=== PATIENT | female | born 1955 | race Caucasian/White ===

== ENCOUNTER 2018-02-10 15:20 | Day surgery (SDC) | payer BC, OTHER ==
[2018-02-10] MEDS ORDERED: cefTRIAXone(*) 2 GM ADDV.VIAL IVPB ONE (16:01)
[2018-02-10] MEDS ORDERED: Buffered Lidocaine 0.9% SYRIN* 5 ML/SYR SYRINGE INTRADERM ONE (16:15)
[2018-02-10] MEDS ORDERED: Ondansetron INJ* 2 MG/ML VIAL ONE (16:15)
[2018-02-10] MEDS ORDERED: Famotidine IV* 10 MG/ML 2 ML (20 mg) IV ONE (16:15)
[2018-02-10] MEDS ORDERED: Dexamethasone TAB* 4 MG PO ONE (16:15)
[2018-02-10] MEDS ORDERED: Famotidine IV* 10 MG/ML 2 ML (20 mg) ONE (16:16)
[2018-02-10] MEDS ORDERED: oxyCODONE/Acetamin 5/325 MG* TAB PO PRN (16:17)
[2018-02-10] MEDS ORDERED: PROCHLORPERAZINE INJ 5 MG/ML 2 ML VIAL IV PRN (16:17)
[2018-02-10] MEDS ORDERED: Naloxone* 0.4 MG/ML 1 ML VIAL IV PRN (16:17)
[2018-02-10] MEDS ORDERED: Morphine INJ* 2 MG/ML 1 ML SYRINGE (TWO MG - NEW SYRINGE VERSION) IV PRN (16:17)
[2018-02-10] MEDS ORDERED: Ondansetron ODT TAB* 4 MG ONE (16:17)
[2018-02-10] MEDS ORDERED: Scopolamine 1.5 mg* PATCH TRANSDERM PRN (16:17)
[2018-02-10] MEDS ORDERED: Dexamethasone TAB* 4 MG ONE (16:17)
[2018-02-10] MEDS ORDERED: DiMENhydriNATE IV* 50 MG/ML VIAL IV PUSH PRN (16:17)
[2018-02-10] MEDS ORDERED: fentaNYL* 50 MCG/ML 2 ML VIAL (100 MCG VIAL) IV PRN (16:17)
[2018-02-10] MEDS ORDERED: Iohexol 180 (CONTRAST) 10 ML SDV IV ONE (16:27)
[2018-02-10] MEDS ORDERED: KETAMINE HCL* 50 MG/ML 10 ML VIAL ONE (16:28)
[2018-02-10] MEDS ORDERED: fentaNYL* 50 MCG/ML 2 ML VIAL (100 MCG VIAL) ONE (16:28)
[2018-02-10] MEDS ORDERED: Midazolam* 1 MG/ML 5 ML VIAL (5 MG) ONE (16:28)
[2018-02-10] MEDS ORDERED: Lidocaine 2% PF * 5 ML VIAL ONE (17:57)
[2018-02-10] MEDS ORDERED: Propofol* 10 MG/ML 20 ML BTL IV PUSH ONE (17:57)
[2018-02-10 19:00] VITALS: BP 128/69
--- NOTE | 2018-02-11 07:04 | RAD ---
INDICATION: Left renal calculi, left ureteral stent placement. COMPARISON: Comparison is made with prior KUB series from February 08, 2018. TECHNIQUE: 5 seconds of intermittent fluoroscopic guidance were provided and 5 spot films of the abdomen were centered on the left side. FINDINGS: There is partial opacification of the left renal collecting system. Subsequently there is placement of a double-J stent catheter on the left side which demonstrates normal course. IMPRESSION: INTRAOPERATIVE CONTROL FILMS. CPT II Codes: G9500
--- NOTE | 2018-02-11 18:12 | OP ---
CC: Ferdinand Johnson MD * DATE OF OPERATION: 02/10/18 - [facility] DATE OF : 59. SURGEON: Roshan Walters MD. ANESTHESIOLOGIST: Dr. Coronel. ANESTHESIA: General. PRE-OP DIAGNOSES: 1. Calculus, left ureter. 2. Mild left hydronephrosis. POST-OP DIAGNOSES: 1. Calculus, left ureter. 2. Mild left hydronephrosis. OPERATIVE PROCEDURE: Cystoscopy, left retrograde pyelogram, left ureteroscopy, laser lithotripsy and left stent insertion. COMPLICATIONS: None. STENT USED: A 6-Mauritanian stent, left ureter. OPERATIVE FINDINGS: 1. About 6 to 7 mm calculus impacted in left distal ureter with surrounding edema and inflammation. 2. Mild stricture left distal ureter, just below the level of the calculus. 3. Mild left hydronephrosis. INDICATION: Mariposa Cano is a 62-year-old lady with a history of recurrent bilateral renal calculi. She was recently evaluated and noted to have bilateral ureteral calculi. She did recently pass the right-sided calculus, but has the persistent left ureteral calculus. I gave her the option of trying to continue conservative management with hydration, analgesics, and straining, but she would like to have the stone removed because of prior experiences with obstructing stones and is now being brought in for left ureteroscopy. DESCRIPTION OF PROCEDURE: After induction of general anesthesia, the patient was placed in dorsal lithotomy position. Sequential compression devices were in place and functioning. Initial cystoscopy revealed a normal-appearing bladder. There was clear efflux noted from the right side. There was minimal efflux noted from the left side suggesting the obstruction may have gotten a little bit more profound since her evaluation in the office earlier. Limited left retrograde pyelogram revealed fullness of the left collecting system. A 6-Mauritanian semi-rigid ureteroscope was introduced and advanced under direct vision. About 1 cm above the ureterovesical junction, there was a focal area of narrowing of the ureter and just above that a 6 to 7 mm sharp edged calculus was noted to be impacted. There was some surrounding edema and inflammation. The calculus was carefully manipulated proximally and using 550 micron Holmium laser it was successfully broken up into the multiple small fragments. All of the sizeable fragments were retrieved. At the end of the procedure, there were no remaining sizeable fragments and a 6-Mauritanian stent was introduced and positioned under fluoroscopy with good proximal and distal positioning obtained. The bladder was emptied. The patient tolerated the procedure satisfactorily and was transferred back to the recovery area in stable condition. [id number] #: [id number]
[2018-02-13] MEDS ORDERED: Scopolamine PATCH Remove* 1 NOTE MISC PATCH OFF ONE (16:18)
== END 2018-02-10 19:13 | disposition home or self-care (01) ==
LOC: OR 15:20
PROVIDERS: ATTEND Urology
DX: N13.2 Hydronephrosis with renal and ureteral calculous obstruction (principal); I10 Essential (primary) hypertension; Z72.0 Tobacco use
CPT/HCPCS: 74420; 82365; 88300; A9270-GY; C1876; J0696; J2250; J2704; J3010; J8540